=== PATIENT | male | born 1975 | race Caucasian/White ===

== ENCOUNTER 2016-07-07 21:11 | Emergency (ER) | payer SELFPAY ==
[~2016-07-07] VITALS: Ht 182.9 cm; Wt 68.1 kg
[~2016-07-07 21:11] MED LIST: DIAZ5 PO; TRAZ50TA4 PO
[2016-07-07 21:17] VITALS: BP 121/64; PULSE 91; RESP 18; TEMP 97.4; O2SAT 92
[2016-07-07] MEDS ORDERED: IBUP200T2 PO (21:28)
--- NOTE | 2016-07-07 21:42 | PD ---
HPI Chief Complaint: OD/ Ingestion Time Seen by Provider: 21:24 Travel History International Travel<30 days: No Contact w/Intl Traveler<30days: No Traveled to known affect area: No History of Present Illness HPI A 41-year-old man who presents to the emergency department following heroin overdose. EMS reports that his mom found him obtunded at a friend's house. He reports using IV heroin tonight recreationally, no suicidality. He was given a total of 0.8 mg of parenteral naloxone resolution of the symptoms. Patient states he feels generally well at this time. Denies any significant chest pain or trouble breathing. Denies any other recent illness or injury. History Past Medical History Medical History: Denies Significant Hx Social History Alcohol Use: Yes Tobacco Use: Yes (2 PPD) Allergies-Medications (Allergen,Severity, Reaction): Coded Allergies: No Known Allergies (Verified , 07/07/16) Reported Meds & Prescriptions Reported Meds & Active Scripts Active Reported Ibuprofen 200 Mg Tab 200 Mg PO Q4H PRN Review of Systems Except as stated in HPI: all other systems reviewed are Neg Physical Exam Narrative GENERAL: Generally well-appearing 41-year-old man, no acute distress. SKIN: Warm and dry. HEAD: Atraumatic. Normocephalic. EYES: Pupils equal and round. No scleral icterus. No injection or drainage. ENT: No nasal bleeding or discharge. Mucous membranes pink and moist. NECK: Trachea midline. No JVD. CARDIOVASCULAR: Regular rate and rhythm. No murmur appreciated. RESPIRATORY: Normal rate and effort. No accessory muscle use. Coarse breath sounds with wheezing throughout the posterior lung sanchez, with a little bit of rhonchi in the right base. GASTROINTESTINAL: Abdomen soft, non-tender, nondistended. Hepatic and splenic margins not palpable. MUSCULOSKELETAL: No obvious deformities. No edema. NEUROLOGICAL: Awake and alert. No obvious cranial nerve deficits. Motor grossly within normal limits. Normal speech. PSYCHIATRIC: Appropriate mood and affect; insight and judgment normal. Data Data Last Documented VS Vital Signs Date Time Temp Pulse Resp B/P Pulse Ox O2 Delivery O2 Flow Rate FiO2 07/07/16 21:17 97.4 91 18 121/64 92 MDM Medical Decision Making Medical Screen Exam Complete: Yes Emergency Medical Condition: Yes Differential Diagnosis Opiate overdose, aspiration, drug abuse, suicidality, other Narrative Course Medical decision making 41-year-old man referred racial IV heroin overdose, treated with Narcan with complete resolution. Looks well. Some rhonchi in the right base with occasional low oxygen saturations. We'll check x-ray to evaluate for aspiration. We'll monitor him for 4 hours in the emergency department. Counseled regarding risk of from IV drug use. Offered resources for substance abuse treatment. FINAL: At the 2 hour jody patient was alert and lucid. I discussed with him the reasons for holding him for another 2 hours to evaluate for the effects of the Narcan wearing off. 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 He states that she will be able to look on him that he cannot stay in the hospital. He is of sound mind and judgment at this time. I do not think we have legal grounds to hold him against his will at this point. He has a reasonable plan to care for himself, and reports a responsible adult will be there with him. He is allowed to leave AGAINST MEDICAL ADVICE. Diagnosis Primary Impression: Accidental heroin overdose Qualified Code: T40.1X1A - Accidental heroin overdose, initial encounter Referrals: [facility] days Patient Instructions: General Instructions Additional Instructions: Avoid illicit drug use. Follow-up with Venkat Bruner for substance abuse treatment. Return to the emergency department for any new or worsening symptoms. Med/Other Pt SpecificInfo: No Change to Meds Disposition: 07 AGAINST MEDICAL ADVICE Condition: Joe Griffiths MD Jul 07, 2016 21:42
== END 2016-07-07 23:25 | disposition left against medical advice (07) ==
LOC: NEPA 21:11
DX: T40.1X1A Poisoning by heroin, accidental (unintentional), initial encounter (principal); Y92.019 Unspecified place in single-family (private) house as the place of occurrence of the external cause; F17.210 Nicotine dependence, cigarettes, uncomplicated; F10.10 Alcohol abuse, uncomplicated
CPT/HCPCS: 99284

== ENCOUNTER 2017-02-25 13:56 | Emergency (ER) | payer SELFPAY ==
[~2017-02-25] VITALS: Ht 182.9 cm; Wt 69.0 kg
[~2017-02-25 13:56] MED LIST changes: -DIAZ5 PO; +IBUP200T2 PO; -TRAZ50TA4 PO
[2017-02-25 13:59] VITALS: BP 121/57; PULSE 75; RESP 18; TEMP 97.5; O2SAT 99
[2017-02-25] MEDS ORDERED: CYCL1TAB29 PO (14:50)
[2017-02-25] MEDS ORDERED: HYDR-3516 PO (14:50)
--- NOTE | 2017-02-25 14:50 | PD ---
HPI Chief Complaint: Musculoskeletal Complaint Time Seen by Provider: 14:47 Travel History International Travel<30 days: No Contact w/Intl Traveler<30days: No Traveled to known affect area: No History of Present Illness HPI Patient presents with complaints of lower back pain. Denies any trauma misstep or fall. Onset this morning when he bent over at about angle. Denies any lower extremity numbness or tingling. Denies any gait abnormalities. PFSH Past Medical History Arthritis: No Asthma: No Autoimmune Disease: No Blood Disorders: No Anxiety: Yes Depression: No Heart Rhythm Problems: No Cancer: No Cardiovascular Problems: Yes High Cholesterol: No Chemotherapy: No Chest Pain: No Congestive Heart Failure: No COPD: No Cerebrovascular Accident: No Diabetes: No Diminished Hearing: No Endocrine: No Gastrointestinal Disorders: Yes (damaged esophgeal scarring) GERD: No Glaucoma: No Genitourinary: No Headaches: No Hiatal Hernia: No Hypertension: No Immune Disorder: No Kidney Stones: No Musculoskeletal: Yes (scoliosis) Neurologic: No Psychiatric: No Reproductive: No Respiratory: No Immunizations Current: No Myocardial Infarction: No Radiation Therapy: No Renal Failure: No Seizures: No Sickle Cell Disease: No Sleep Apnea: No Thyroid Disease: No Ulcer: No Influenza Vaccination: No ?: Not Past Surgical History Abdominal Surgery: No AICD: No Cardiac Surgery: No Ear Surgery: No Endocrine Surgery: No Eye Surgery: No Genitourinary Surgery: No Oral Surgery: No Pacemaker: No Thoracic Surgery: No Other Surgery: Yes Social History Alcohol Use: No Tobacco Use: No (quit) Substance Use: Yes (OPIATES, XANAX, HEROIN ) Allergies-Medications (Allergen,Severity, Reaction): Coded Allergies: No Known Allergies (Verified , 02/25/17) Reported Meds & Prescriptions Reported Meds & Active Scripts Active Flexeril (Cyclobenzaprine HCl) 10 Mg Tab 10 Mg PO TID Hydrocodone-Acetaminophen 5-325 mg Tab 1 Tab PO Q6H PRN Review of Systems General / Constitutional: No: Fever Eyes: No: Visual changes HENT: No: Headaches Cardiovascular: No: Chest Pain or Discomfort Respiratory: No: Shortness of Breath Gastrointestinal: No: Abdominal Pain Genitourinary: No: Dysuria Musculoskeletal: Positive: Pain Skin: No Rash Neurologic: No: Weakness Psychiatric: No: Depression Endocrine: No: Polydipsia Hematologic/Lymphatic: No: Easy Bruising Physical Exam Narrative GENERAL: Well-nourished, well-developed patient. SKIN: Focused skin assessment warm/dry. HEAD: Normocephalic. EYES: No scleral icterus. No injection or drainage. NECK: Supple, trachea midline. No JVD or lymphadenopathy. CARDIOVASCULAR: Regular rate and rhythm without murmurs, gallops, or rubs. RESPIRATORY: Breath sounds equal bilaterally. No accessory muscle use. GASTROINTESTINAL: Abdomen soft, non-tender, nondistended. MUSCULOSKELETAL: No cyanosis, or edema. BACK: Nontender without obvious deformity. No CVA tenderness. Examination lumbar sacral spine reveals no midline tenderness bilateral paraspinous pain does not radiate to the gluteus, negative straight leg raise Data Data Last Documented VS Vital Signs Date Time Temp Pulse Resp B/P (MAP) Pulse Ox O2 Delivery O2 Flow Rate FiO2 02/25/17 13:59 97.5 75 18 121/57 (78) 99 MDM Medical Decision Making Medical Screen Exam Complete: Yes Emergency Medical Condition: Yes Differential Diagnosis Lumbar degenerative disc disease, lumbar sacral sprain, lumbar sacral strain, fracture vertebrae Narrative Course Assessment and plan discussed with patient at bedside Diagnosis Primary Impression: Lumbago Qualified Codes: M54.5 - Low back pain Patient Instructions: General Instructions Additional Instructions: Encourage nonsteroidal anti-inflammatories warm heat gentle stretching and strengthening and massage. Follow-up with PCP. Return to emergency with any onset of new symptoms. Med/Other Pt SpecificInfo: Prescription(s) given Scripts Cyclobenzaprine (Flexeril) 10 Mg Tab 10 MG PO TID for Muscle Spasm, #20 TAB 0 Refills Prov: Avery Zamora MD 02/25/17 Hydrocodone-Acetaminophen (Hydrocodone-Acetaminophen) 5-325 mg Tab 1 TAB PO Q6H Y for PAIN, #20 TAB 0 Refills Prov: Avery Zamora MD 02/25/17 Disposition: 01 DISCHARGE HOME Condition: Good Avery Zamora MD Feb 25, 2017 14:50
[2017-02-25] MEDS ORDERED: KETOROLAC TROMETHAMINE 60 MG/2 ML (IM) VIAL IM ONE (15:00)
== END 2017-02-25 15:04 | disposition home or self-care (01) ==
LOC: PHEFT 13:56
DX: M54.5 Low back pain (principal); F41.9 Anxiety disorder, unspecified; Z79.899 Other long term (current) drug therapy
CPT/HCPCS: 96372; 99284; J1885

== ENCOUNTER 2017-03-18 09:20 | Emergency (ER) | payer SELFPAY ==
[~2017-03-18] VITALS: Ht 182.9 cm; Wt 72.0 kg
[~2017-03-18 09:20] MED LIST changes: +CYCL10TA PO; +HYDR-3516 PO; -IBUP200T2 PO
[2017-03-18 09:24] VITALS: BP 130/79; PULSE 93; RESP 18; TEMP 97.6; O2SAT 99
[2017-03-18] MEDS ORDERED: SUBO8MIS SL (09:37)
[2017-03-18] MEDS ORDERED: VIST50CA PO (09:53)
--- NOTE | 2017-03-18 09:54 | PD ---
HPI Chief Complaint: Anxiety Time Seen by Provider: 09:31 Travel History International Travel<30 days: No Contact w/Intl Traveler<30days: No Traveled to known affect area: No History of Present Illness HPI 42-year-old male here for evaluation of increasing anxiety over the last 24 hours. Patient has history of anxiety with panic attacks. He reports the symptoms are similar to his previous. He is not currently on any medication. He reports feeling nervous and difficulty sleeping. He denies chest pain, palpitations, shortness of breath, weakness or syncope. Symptom severity is very. No alleviating factors. PFSH Past Medical History Arthritis: No Asthma: No Autoimmune Disease: No Blood Disorders: No Anxiety: Yes Depression: No Heart Rhythm Problems: No Cancer: No Cardiovascular Problems: Yes High Cholesterol: No Chemotherapy: No Chest Pain: No Congestive Heart Failure: No COPD: No Cerebrovascular Accident: No Diabetes: No Diminished Hearing: No Endocrine: No Gastrointestinal Disorders: Yes (damaged esophgeal scarring) GERD: No Glaucoma: No Genitourinary: No Headaches: No Hiatal Hernia: No Hypertension: No Immune Disorder: No Kidney Stones: No Musculoskeletal: Yes (scoliosis) Neurologic: No Psychiatric: No Reproductive: No Respiratory: No Immunizations Current: No Myocardial Infarction: No Radiation Therapy: No Renal Failure: No Seizures: No Sickle Cell Disease: No Sleep Apnea: No Thyroid Disease: No Ulcer: No Past Surgical History Abdominal Surgery: No AICD: No Cardiac Surgery: No Ear Surgery: No Endocrine Surgery: No Eye Surgery: No Genitourinary Surgery: No Oral Surgery: No Pacemaker: No Thoracic Surgery: No Other Surgery: Yes Social History Alcohol Use: No Tobacco Use: No (quit) Substance Use: Yes (OPIATES, XANAX, HEROIN , HX OF) Allergies-Medications (Allergen,Severity, Reaction): Coded Allergies: No Known Allergies (Verified Adverse Reaction, Unknown, 03/18/17) Reported Meds & Prescriptions Reported Meds & Active Scripts Active Reported Suboxone Sublingual Film (Buprenorphine-Naloxone Sublingual Film) 8-2 Mg Film 1 Film SL DAILY Unique ID number required: Review of Systems Except as stated in HPI: all other systems reviewed are Neg General / Constitutional: No: Fever Eyes: No: Visual changes HENT: No: Headaches Cardiovascular: No: Chest Pain or Discomfort Respiratory: No: Shortness of Breath Gastrointestinal: No: Abdominal Pain Genitourinary: No: Dysuria Musculoskeletal: No: Pain Skin: No Rash Neurologic: No: Weakness Physical Exam Narrative GENERAL: Alert well-appearing male. He appears mildly anxious. SKIN: Warm and dry. No diaphoresis. HEAD: Normocephalic. EYES: No scleral icterus. No injection or drainage. NECK: Supple, trachea midline. No JVD or lymphadenopathy. CARDIOVASCULAR: Regular rate and rhythm without murmurs, gallops, or rubs. RESPIRATORY: Breath sounds equal bilaterally. No accessory muscle use. GASTROINTESTINAL: Abdomen soft, non-tender, nondistended. MUSCULOSKELETAL: No cyanosis, or edema. BACK: Nontender without obvious deformity. No CVA tenderness. Data Data Last Documented VS Vital Signs Date Time Temp Pulse Resp B/P (MAP) Pulse Ox O2 Delivery O2 Flow Rate FiO2 03/18/17 09:24 97.6 93 18 130/79 (96) 99 MDM Medical Decision Making Medical Screen Exam Complete: Yes Emergency Medical Condition: Yes Differential Diagnosis Anxiety, panic attack, other Narrative Course 42-year-old male here for evaluation of increasing anxiety over the last 24 hours. Patient has history of anxiety with panic attacks. He reports the symptoms are similar to his previous. He is not currently on any medication. He reports feeling nervous and difficulty sleeping. He denies chest pain, palpitations, shortness of breath, weakness or syncope. Once roomed in the emergency department he was put on the cardiac and pulse oximetry monitor. His vital signs are stable. He has sinus rhythm on the monitor. His vital signs are stable. He appears slightly anxious. He is well-appearing. This appears to be a mild case of anxiety. Patient will be given a shot of Vistaril in the ER and a prescription of Vistaril and referral to the [facility]. Patient and his mother are agreeable to this plan Diagnosis Primary Impression: Anxiety Referrals: [facility] Additional Instructions: Take Vistaril as prescribed. Make an appointment for follow-up with the [facility]. Scripts Hydroxyzine Pamoate (Vistaril) 50 Mg Cap 50 MG PO TID, #30 CAP 0 Refills Prov: Dia Arenas 03/18/17 Disposition: 01 DISCHARGE HOME Condition: Stable Dia Arenas Mar 18, 2017 09:54
[2017-03-18] MEDS ORDERED: hydrOXYzine HCL 50 MG/ML VIAL IM ONE (10:00)
== END 2017-03-18 10:14 | disposition home or self-care (01) ==
LOC: PHED 09:20
DX: F41.9 Anxiety disorder, unspecified (principal); Z86.59 Personal history of other mental and behavioral disorders; Z86.79 Personal history of other diseases of the circulatory system; Z87.19 Personal history of other diseases of the digestive system; Z87.39 Personal history of other diseases of the musculoskeletal system and connective tissue
CPT/HCPCS: 96372; 99284; J3410

== ENCOUNTER 2017-04-03 00:24 | Emergency (ER) | payer SELFPAY ==
[~2017-04-03] VITALS: Ht 182.9 cm; Wt 73.6 kg
[~2017-04-03 00:24] MED LIST changes: -CYCL10TA PO; -HYDR-3516 PO; +SUBO8MIS SL; +VIST50CA PO
[2017-04-03 00:27] VITALS: BP 96/65; PULSE 60; RESP 20; TEMP 97.8; O2SAT 99
[2017-04-03 00:37] VITALS: BP 96/65; PULSE 60; RESP 18; TEMP 97.8; O2SAT 98
[2017-04-03] MEDS ORDERED: SODIUM CHLOR 0.9% 1000 ML INJ 1,000 ML IV ONE (01:30)
--- NOTE | 2017-04-03 01:38 | PD ---
HPI Chief Complaint: Anxiety Time Seen by Provider: 01:16 Travel History International Travel<30 days: No Contact w/Intl Traveler<30days: No Traveled to known affect area: No History of Present Illness HPI 42-year-old male presents to the emergency department by private transportation the care of his mother for complaint of one day of anxiety and feeling as if he can't breathe. Patient denies pleuritic chest pain. She does note chest tightness. 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 Patient also with history of opiate use and accidental opiate overdose as recently as June 2016. Patient was seen as recently as one week ago for same complaint which time he was given Vistaril was symptomatic relief. Patient denies any recent febrile illness, fall, or injury. Patient has had no recent long distance travel protracted bedrest or surgical no reported family history of clotting disorder however mother does have history of lupus. Patient denies history of hypertension dyslipidemia diabetes or tobaccoism. PFSH Past Medical History Narrative Medical Anxiety atraumatic brain injury prior substance abuse; nursing notes reviewed Arthritis: No Asthma: No Autoimmune Disease: No Blood Disorders: No Anxiety: Yes Depression: No Heart Rhythm Problems: No Cancer: No Cardiovascular Problems: Yes High Cholesterol: No Chemotherapy: No Chest Pain: No Congestive Heart Failure: No COPD: No Cerebrovascular Accident: No Diabetes: No Patient Takes Glucophage: No Diminished Hearing: No Endocrine: No GERD: No Glaucoma: No Genitourinary: No Headaches: No Hiatal Hernia: No Hypertension: No Immune Disorder: No Kidney Stones: No Neurologic: No Psychiatric: No Reproductive: No Respiratory: No Immunizations Current: No Myocardial Infarction: No Radiation Therapy: No Renal Failure: No Seizures: No Sickle Cell Disease: No Sleep Apnea: No Thyroid Disease: No Ulcer: No Tetanus Vaccination: Never Vaccinated ?: Not Past Surgical History Abdominal Surgery: No AICD: No Cardiac Surgery: No Ear Surgery: No Endocrine Surgery: No Eye Surgery: No Genitourinary Surgery: No Insulin Pump: No Oral Surgery: No Pacemaker: No Thoracic Surgery: No Other Surgery: Yes Social History Alcohol Use: No Tobacco Use: No (quit) Substance Use: Yes (OPIATES, XANAX, HEROIN , HX OF) Allergies-Medications (Allergen,Severity, Reaction): Coded Allergies: No Known Allergies (Verified Adverse Reaction, Unknown, 03/18/17) Reported Meds & Prescriptions Reported Meds & Active Scripts Active Vistaril (Hydroxyzine Pamoate) 50 Mg Cap 50 Mg PO TID Reported Suboxone Sublingual Film (Buprenorphine-Naloxone Sublingual Film) 8-2 Mg Film 1 Film SL DAILY Unique ID number required: Review of Systems Except as stated in HPI: all other systems reviewed are Neg General / Constitutional: No: Fever, Chills Eyes: No: Visual changes HENT: No: Headaches, Vertigo, Lightheadedness, Neck Pain Cardiovascular: No: Chest Pain or Discomfort, Palpitations, Diaphoresis Respiratory: Positive: Shortness of Breath, No: Orthopnea, Hemoptysis, Pleuritic Pain Gastrointestinal: No: Nausea, Vomiting Genitourinary: No: Flank Pain Musculoskeletal: No: Myalgias, Arthralgias Skin: No Rash Neurologic: No: Weakness, Dizziness, Syncope, Focal Abnormalities, Coordination Problem Psychiatric: Positive: Anxiety, No: Depression, Suicidal Ideations, Substance Abuse Endocrine: No: Heat Intolerance, Cold Intolerance Hematologic/Lymphatic: No: Easy Bruising Physical Exam Narrative GENERAL: Well-developed well-nourished thin male in no acute distress no respiratory distress appears mildly anxious; triage vital signs remarkable for blood pressure 96/65. SKIN: Warm and dry. HEAD: Atraumatic. Normocephalic. EYES: Pupils equal and round. No scleral icterus. No injection or drainage. ENT: No nasal bleeding or discharge. Mucous membranes pink and moist. NECK: Trachea midline. No JVD. CARDIOVASCULAR: Regular rate and rhythm. RESPIRATORY: No accessory muscle use. Clear to auscultation. Breath sounds equal bilaterally. GASTROINTESTINAL: Abdomen soft, non-tender, nondistended. Hepatic and splenic margins not palpable. MUSCULOSKELETAL: Extremities without clubbing, cyanosis, or edema. No obvious deformities. NEUROLOGICAL: Awake and alert. No obvious cranial nerve deficits. Motor grossly within normal limits. Five out of 5 muscle strength in the arms and legs. Normal speech. PSYCHIATRIC: Appropriate mood and affect; insight and judgment normal. Data Data Last Documented VS Vital Signs Date Time Temp Pulse Resp B/P (MAP) Pulse Ox O2 Delivery O2 Flow Rate FiO2 04/03/17 03:00 56 14 133/70 (91) 98 Room Air 04/03/17 00:37 97.8 Orders Orders Hydroxyzine Pamoate (Vistaril) (04/03/17 01:30) ^ Saline Lock (04/03/17 01:19) Sodium Chlor 0.9% 1000 Ml Inj (Ns 1000 M (04/03/17 01:30) Complete Blood Count With Diff (04/03/17 01:19) Basic Metabolic Panel (Bmp) (04/03/17 01:19) Magnesium (Mg) (04/03/17 01:19) D-Dimer (04/03/17 01:19) Electrocardiogram (04/03/17 ) Chest, Single Ap (04/03/17 ) Drug Screen, Random Urine (04/03/17 01:19) Troponin I (04/03/17 01:50) Labs Laboratory Tests Test 04/03/17 01:50 04/03/17 02:15 White Blood Count 8.1 TH/MM3 Red Blood Count 5.15 MIL/MM3 Hemoglobin 14.7 GM/DL Hematocrit 43.9 % Mean Corpuscular Volume 85.3 FL Mean Corpuscular Hemoglobin 28.5 PG Mean Corpuscular Hemoglobin Concent 33.5 % Red Cell Distribution Width 12.1 % Platelet Count 213 TH/MM3 Mean Platelet Volume 10.0 FL Neutrophils (%) (Auto) 42.6 % Lymphocytes (%) (Auto) 38.5 % Monocytes (%) (Auto) 10.3 % Eosinophils (%) (Auto) 4.4 % Basophils (%) (Auto) 4.2 % Neutrophils # (Auto) 3.5 TH/MM3 Lymphocytes # (Auto) 3.1 TH/MM3 Monocytes # (Auto) 0.8 TH/MM3 Eosinophils # (Auto) 0.4 TH/MM3 Basophils # (Auto) 0.3 TH/MM3 CBC Comment DIFF FINAL Differential Comment D-Dimer Quantitative (PE/DVT) 0.35 MG/L FEU Blood Urea Nitrogen 23 MG/DL Creatinine 0.88 MG/DL Random Glucose 92 MG/DL Calcium Level 8.9 MG/DL Magnesium Level 2.2 MG/DL Sodium Level 138 MEQ/L Potassium Level 4.0 MEQ/L Chloride Level 105 MEQ/L Carbon Dioxide Level 27.8 MEQ/L Anion Gap 5 MEQ/L Estimat Glomerular Filtration Rate 95 ML/MIN Troponin I LESS THAN 0.02 NG/ML Urine Opiates Screen NEG Urine Barbiturates Screen NEG Urine Amphetamines Screen NEG Urine Benzodiazepines Screen NEG Urine Cocaine Screen NEG Urine Cannabinoids Screen NEG MDM Medical Decision Making Medical Screen Exam Complete: Yes Emergency Medical Condition: Yes Medical Record Reviewed: Yes Interpretation(s) EKG sinus bradycardia heart rate 59 incomplete right bundle branch block with right ventricular hypertrophy no acute ST elevation or injury pattern change noted artifact is present at baseline Troponin I: D-dimer: 0.35, not elevated CBC & BMP Diagram 04/03/17 01:50 Calcium Level 8.9, Magnesium Level 2.2 Last Impressions Chest X-Ray 04/03/17 0000 Signed Impressions: Service Date/Time: Monday, April 03, 2017 01:33 - CONCLUSION: No evidence of acute cardiopulmonary disease. Shivma Tay MD UDS: Negative Troponin I: Less than 0.02, not elevated Differential Diagnosis Panic disorder, PE, ACS, DE, anemia, dehydration, electrolyte disturbance, arrhythmia, substance ingestion Narrative Course IV access obtained specimens collected and sent for resulting EKG performed shows bradycardia heart rate 59 incomplete right bundle branch block with right ventricular hypertrophy no acute ST elevation or injury pattern change noted artifact is present at baseline Blood pressure with good response to 1 L of normal saline line replacement Anxiety and panic symptoms have resolved with Vistaril Lab values found grossly within normal limits specifically d-dimer is not elevated 0.25 and troponin I is less than 0.02, not elevated Patient is stable for outpatient management and follow-up with this provider. Patient is provided refill of his Vistaril. Diagnosis Primary Impression: Anxiety Additional Impression: Medication refill Referrals: Primary Care Physician call for appointment [facility] needed Patient Instructions: General Instructions Additional Instructions: Follow-up with your provider Return to the emergency department for any concerns Med/Other Pt SpecificInfo: Prescription(s) given Scripts Hydroxyzine Pamoate (Vistaril) 50 Mg Cap 50 MG PO Q8HR Y for ANXIETY for 15 Days, CAP 0 Refills Prov: Melanie Torres MD 04/03/17 Disposition: 01 DISCHARGE HOME Condition: Stable Melanie Torres MD Apr 03, 2017 01:38
--- NOTE | 2017-04-03 01:50 | RADRPT ---
EXAM DATE/TIME: 04/03/2017 01:33 [facility] COMPARISON: No previous studies available for comparison. INDICATIONS : Shortness of breath. MEDICAL HISTORY : None. SURGICAL HISTORY : None. ENCOUNTER: Initial ACUITY: 1 day PAIN SCORE: 0/10 LOCATION: Bilateral chest FINDINGS: A single view of the chest demonstrates the lungs to be symmetrically aerated without evidence of mas s, infiltrate or effusion. The cardiomediastinal contours are unremarkable. Osseous structures are intact. CONCLUSION: No evidence of acute cardiopulmonary disease. Shivam Tay MD on April 03, 2017 at 1:48 Board Certified Radiologist. This report was verified electronically.
[2017-04-03 02:11] LABS: CHLORIDE 105 MEQ/L (98-107); SODIUM (NA) 138 MEQ/L (136-145)
[2017-04-03 02:12] LABS: AUTOMATED NEUTROPHIL # 3.5 TH/MM3 (1.8-7.7); BASOPHIL # 0.3 TH/MM3 (0-0.2); BASOPHIL % 4.2 % (0.0-2.0); EOSINOPHIL # 0.4 TH/MM3 (0-0.4); EOSINOPHIL % 4.4 % (0.0-4.0); HEMATOCRIT 43.9 % (39.0-51.0); HEMO FLAGS DIFF FINAL; LYMPH % 38.5 % (9.0-44.0); LYMPHOCYTE # 3.1 TH/MM3 (1.0-4.8); MEAN CELL VOLUME 85.3 FL (80.0-100.0); MEAN CORPUSCULAR HEMOGLOBIN 28.5 PG (27.0-34.0); MEAN CORPUSCULAR HGB CONC 33.5 % (32.0-36.0); MONO % 10.3 % (0.0-8.0); NEUT % 42.6 % (16.0-70.0); PLATELET COUNT 213 TH/MM3 (150-450); RED BLOOD COUNT 5.15 MIL/MM3 (4.50-5.90); RED CELL DISTRIBUTION WIDTH 12.1 % (11.6-17.2); WHITE BLOOD COUNT 8.1 TH/MM3 (4.0-11.0)
[2017-04-03 02:14] LABS: ANION GAP 5 MEQ/L (5-15); BICARBONATE 27.8 MEQ/L (21.0-32.0); BLOOD UREA NITROGEN 23 MG/DL (7-18); MAGNESIUM 2.2 MG/DL (1.5-2.5)
[2017-04-03 02:17] LABS: GLOMERULAR FILTRATION RATE 95 ML/MIN (>89)
[2017-04-03 03:00] VITALS: BP 133/70; PULSE 56; RESP 14; O2SAT 98
[2017-04-03] MEDS ORDERED: VIST50CA PO (03:15)
[2017-04-03 03:28] VITALS: BP 133/70
--- NOTE | 2017-04-03 17:59 | EKG ---
Date Performed: 04/03/2017 Time Performed: 01:29:47 PTAGE: 42 years EKG: SINUS BRADYCARDIA INCOMPLETE RIGHT BUNDLE BRANCH BLOCK RIGHT VENTRICULAR HYPERTROPHY ABNORM AL ECG NO PREVIOUS TRACING DOCTOR: Robin Hill Interpretating Date/Time 04/03/2017 17:58:02
== END 2017-04-03 03:44 | disposition home or self-care (01) ==
LOC: PHED 00:24
DX: F41.9 Anxiety disorder, unspecified (principal); R07.89 Other chest pain; Z76.0 Encounter for issue of repeat prescription; Z87.820 Personal history of traumatic brain injury; Z79.899 Other long term (current) drug therapy
CPT/HCPCS: 71010; 80048; 80307; 83735; 84484; 85025; 85379; 93005; 96360; 99285; J7030

== ENCOUNTER 2017-10-15 20:45 | Emergency (ER) | payer SELFPAY ==
[~2017-10-15] VITALS: Ht 182.9 cm; Wt 72.7 kg
[2017-10-15 20:48] VITALS: BP 124/60; PULSE 73; RESP 18; TEMP 99.1; O2SAT 97
[2017-10-15] MEDS ORDERED: LIDO1SOL8 SWISH-SWAL (21:11)
[2017-10-15] MEDS ORDERED: PENI500T PO (21:11)
--- NOTE | 2017-10-15 21:11 | PD ---
HPI Chief Complaint: ENT Complaint Time Seen by Provider: 21:06 Travel History International Travel<30 days: No Contact w/Intl Traveler<30days: No Traveled to known affect area: No History of Present Illness HPI Patient comes in complaining of approximately 5 day history of sore throat. Denies any alleviating or aggravating factors. Denies any associated factors such as having any runny nose, cough, nausea, vomiting, diarrhea, abdominal pain , chest pain, neck pain, rash No known drug allergy Past medical history significant for chronic neck pain, syncope, GERD, anxiety, claustrophobia, substance use with opiates Xanax and heroin, PFSH Past Medical History Arthritis: No Asthma: No Autoimmune Disease: No Blood Disorders: No Anxiety: Yes Depression: No Heart Rhythm Problems: No Cancer: No Cardiovascular Problems: Yes High Cholesterol: No Chemotherapy: No Chest Pain: No Congestive Heart Failure: No COPD: No Cerebrovascular Accident: No Diabetes: No Diminished Hearing: No Endocrine: No GERD: No Glaucoma: No Genitourinary: No Headaches: No Hiatal Hernia: No Hypertension: No Immune Disorder: No Kidney Stones: No Neurologic: No Psychiatric: No Reproductive: No Respiratory: No Immunizations Current: No Myocardial Infarction: No Radiation Therapy: No Renal Failure: No Seizures: No Sickle Cell Disease: No Sleep Apnea: No Thyroid Disease: No Ulcer: No Past Surgical History Abdominal Surgery: No AICD: No Cardiac Surgery: No Ear Surgery: No Endocrine Surgery: No Eye Surgery: No Genitourinary Surgery: No Insulin Pump: No Oral Surgery: No Pacemaker: No Thoracic Surgery: No Other Surgery: Yes Social History Alcohol Use: No Tobacco Use: No (quit) Substance Use: Yes (OPIATES, XANAX, HEROIN , HX OF) Allergies-Medications (Allergen,Severity, Reaction): Coded Allergies: No Known Allergies (Verified Adverse Reaction, Unknown, 10/15/17) Reported Meds & Prescriptions Reported Meds & Active Scripts Active Reported Suboxone Sublingual Film (Buprenorphine-Naloxone Sublingual Film) 8-2 Mg Film 1 Film SL DAILY Unique ID number required: Review of Systems General / Constitutional: No: Fever Eyes: No: Visual changes HENT: Positive: Sore Throat Cardiovascular: No: Chest Pain or Discomfort Respiratory: No: Shortness of Breath Gastrointestinal: No: Abdominal Pain Genitourinary: No: Dysuria Musculoskeletal: No: Pain Skin: No Rash Neurologic: No: Weakness Psychiatric: No: Depression Endocrine: No: Polydipsia Hematologic/Lymphatic: No: Easy Bruising Physical Exam Narrative GENERAL: SKIN: Warm and dry. HEAD: Atraumatic. Normocephalic. EYES: Pupils equal and round. No scleral icterus. No injection or drainage. ENT: No nasal bleeding or discharge. Mucous membranes pink and moist. Oropharynx erythematous, edematous, white exudatE present NECK: Trachea midline. No JVD. Anterior cervical lymphadenopathy CARDIOVASCULAR: Regular rate and rhythm. RESPIRATORY: No accessory muscle use. Clear to auscultation. Breath sounds equal bilaterally. GASTROINTESTINAL: Abdomen soft, non-tender, nondistended. MUSCULOSKELETAL: Extremities without clubbing, cyanosis, or edema. No obvious deformities. NEUROLOGICAL: Awake and alert. No obvious cranial nerve deficits. Motor grossly within normal limits. Five out of 5 muscle strength in the arms and legs. Normal speech. PSYCHIATRIC: Appropriate mood and affect; insight and judgment normal. Data Data Last Documented VS Vital Signs Date Time Temp Pulse Resp B/P (MAP) Pulse Ox O2 Delivery O2 Flow Rate FiO2 10/15/17 20:48 99.1 73 18 124/60 (81) 97 Orders Orders Lidocaine 2% Viscous (Xylocaine 2% Visco (10/15/17 21:15) Penicillin V Potassium (Veetids) (10/15/17 21:15) [facility] Medical Decision Making Medical Screen Exam Complete: Yes Emergency Medical Condition: Yes Medical Record Reviewed: Yes Differential Diagnosis Bacterial versus viral pharyngitis versus tonsillitis Narrative Course Clinically significant for pharyngitis Diagnosis Primary Impression: Acute bacterial pharyngitis Patient Instructions: General Instructions, Pharyngitis (ED) Scripts Lidocaine Viscous Liq (Lidocaine Viscous Liq) 2 % Liqd 5 ML SWISH-SWAL QID Y for PAIN, #180 ML 1 Refill Prov: José Lau MD 10/15/17 Penicillin V Potassium (Penicillin V Potassium) 500 Mg Tab 1000 MG PO Q12HR for Infection for 7 Days, #28 TAB 0 Refills Prov: José Lau MD 10/15/17 Disposition: 01 DISCHARGE HOME Condition: Stable José Lau MD Oct 15, 2017 21:11
[2017-10-15] MEDS ORDERED: PENICILLIN V POTASSIUM 500 MG TAB PO ONE (21:15)
[2017-10-15] MEDS ORDERED: LIDOCAINE VISCOUS 2% SOLN 15 ML UDC SWISH-SWAL PRN (21:15)
== END 2017-10-15 21:15 | disposition home or self-care (01) ==
LOC: PHEFT 20:45
DX: J02.8 Acute pharyngitis due to other specified organisms (principal); F41.9 Anxiety disorder, unspecified; Z87.891 Personal history of nicotine dependence
CPT/HCPCS: 99283